=== PATIENT | male | born 1945 | race Caucasian/White ===

== ENCOUNTER → 2018-11-07 11:20 | Outpatient (POV) | payer MEDICARE, SELFPAY ==
[2018-11-07 11:34] VITALS: BP 186/88; PULSE 73; RESP 18; O2SAT 98
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
== END ==
PROVIDERS: PCP Internal Medicine; Visit Provider Clinical Nurse Specialist Family Health
DX: M54.9 Dorsalgia, unspecified (principal); M62.9 Disorder of muscle, unspecified
CPT/HCPCS: 99202